=== PATIENT | male | born 1990 | race Caucasian/White ===

== ENCOUNTER 2019-02-28 23:39 | Emergency (ER) | payer SELFPAY ==
[~2019-02-28] VITALS: Ht 172.7 cm; Wt 95.0 kg
[2019-03-01 02:07] VITALS: BP 92/54
== END 2019-03-01 01:56 | disposition home or self-care (01) ==
LOC: ER 23:39
DX: Z04.1 Encounter for examination and observation following transport accident (principal)
CPT/HCPCS: 99283